=== PATIENT | female | born 1990 | race Two or more races ===

== ENCOUNTER → 2019-09-27 | Outpatient (CLI) | payer MEDICAID ==
--- NOTE | 2019-09-27 14:39 | RADIOLOGY REPORT (SQ) ---
EXAM DESCRIPTION: U/S OB 14+ TRNABD 1GES W/O DOP COMPLETED DATE/TIME: 09/27/2019 1:55 pm REASON FOR STUDY: Z34.82 ENCOUNTER FOR SUPRVSN OF NORMAL , SECOND TRIMESTER Z34.82 ENCOUNT ER FOR SUPRVSN OF NORMAL , SECOND TRI COMPARISON: None. TECHNIQUE: Static and Dynamic grayscale imaging performed of gravid uterus using transabdominal appr oach. Additional selected color Doppler and spectral images recorded. All stored on PACS. LIMITATIONS: None. FINDINGS: FETUSES SEEN:1 EGA: 16 weeks 0 days Calculated using BPD,FL,HC,AC documented on images. No discrepancy with clinica l dates. MARIAJOSE: 03/13/2020 EFW: 147 grams PERCENTILE: Not applicable. Fetus less than or equal to 20 weeks gestation. LVP: 2.2 x 3.9 cm. PLACENTA: Anterior GRADE: I PRESENTATION: Variable. ANATOMY: HEART RATE: 147 beats per minute. FOUR CHAMBER HEART: Visualized. THREE VESSEL CORD: Not verified. CORD INSERTION: Visualized. KIDNEYS AND BLADDER: Kidneys and bladder are not seen. STOMACH: Visualized. Appears normal. SPINE: Not well seen. BRAIN AND LATERAL VENTRICLES: Not well seen. OTHER: No other significant finding. MATERNAL ADNEXA: Maternal ovaries not visualized. CERVICAL LENGTH: 3 cm Closed. OTHER: There appears to be a 3.3 cm uterine fibroid. IMPRESSION: LIVING INTRAUTERINE . ESTIMATED GESTATIONAL AGE 16 weeks 0 days No visualized anomalies. Some anatomical structures could not be seen. Trimester of : Second trimester - 13 weeks 1 day to 27 weeks 6 days. TECHNICAL DOCUMENTATION: JOB ID: [id number] 2010 [employer]- All Rights Reserved Reading location - IP/workstation name: [email or web address]
== END ==
LOC: RAD 12:54
PROVIDERS: ATTEND Midwife
DX: Z34.82 Encounter for supervision of other normal pregnancy, second trimester (principal)
CPT/HCPCS: 76805

== ENCOUNTER 2020-02-29 10:19 | Outpatient (CLI) | payer MEDICAID ==
[2020-02-29 11:30] LABS: APPEARANCE,URINE CLEAR; BILIRUBIN,URINE NEGATIVE (NEGATIVE); COLOR,URINE YELLOW; GLUCOSE, URINE NEGATIVE (NEGATIVE); KETONES,URINE NEGATIVE (NEGATIVE); LEUKOCYTE ESTERASE,URINE NEGATIVE (NEGATIVE); NITRITE,URINE NEGATIVE (NEGATIVE); PROTEIN,URINE NEGATIVE (NEGATIVE); URINE SPECIFIC GRAVITY 1.027
[2020-02-29 11:50] LABS: URINE CREATININE 143.1 mg/dL (16-327)
[2020-02-29 11:55] LABS: URINE AMPHETAMINES SCREEN NEGATIVE; URINE BARBITURATES SCREEN NEGATIVE; URINE BENZODIAZEPINES SCREEN NEGATIVE; URINE COCAINE SCREEN NEGATIVE; URINE MARIJUANA (THC) SCREEN NEGATIVE; URINE METHADONE SCREEN NEGATIVE; URINE PHENCYCLIDINE SCREEN NEGATIVE
[2020-02-29 11:59] LABS: HEMATOCRIT 39.7 % (36.0-47.0); HEMOGLOBIN 13.6 g/dL (12.0-15.5); MEAN CORPUSCULAR HEMOGLOBIN 30.5 pg (27.0-33.4); MEAN CORPUSCULAR HGB CONC 34.3 g/dL (32.0-36.0); MEAN CORPUSCULAR VOLUME 89 fl (80-97); PLATELET COUNT 204 10^3/uL (150-450); RED BLOOD COUNT 4.46 10^6/uL (3.72-5.28); WHITE BLOOD COUNT 7.3 10^3/uL (4.0-10.5)
[2020-02-29 12:21] LABS: ALBUMIN 3.4 g/dL (3.5-5.0); ALKALINE PHOSPHATASE 194 U/L (38-126); ASPARTATE AMINO TRANSFERASE 19 U/L (14-36); BILIRUBIN,TOTAL 0.4 mg/dL (0.2-1.3); BLOOD UREA NITROGEN 9 mg/dL (7-20); CALCIUM 9.3 mg/dL (8.4-10.2); GLUCOSE 77 mg/dL (75-110); TOTAL PROTEIN 6.5 g/dL (6.3-8.2); URIC ACID 4.5 mg/dL (2.5-6.2)
[2020-02-29 12:26] LABS: ANION GAP 5 (5-19); CARBON DIOXIDE 20 mmol/L (22-30); CHLORIDE 108 mmol/L (98-107)
== END 2020-02-29 12:18 | disposition home or self-care (01) ==
LOC: LC 10:19
PROVIDERS: ATTEND Obstetrics & Gynecology Gynecology
DX: O14.93 Unspecified pre-eclampsia, third trimester (principal); Z3A.37 37 weeks gestation of pregnancy
CPT/HCPCS: 36415; 59025; 80053; 80307; 81005; 82570; 83615; 84156; 84550; 85027

== ENCOUNTER 2020-03-09 11:45 | Outpatient (CLI) | payer MEDICAID ==
--- NOTE | 2020-03-09 12:32 | Non Stress Test Report ---
Non Stress Test Datetime Report Generated by CPN: 03/09/2020 12:31 DEMOGRAPHIC EGA NST: 39.0 EGA NST: 37.5 INDICATION Indication for Study (NST) Other: IUP @ 39.0 wks, GHTS Indication for Study (NST) Other: pih w/u VITAL SIGNS Temperature - NST: 98.4 Temperature - NST: 98.2 Pulse - NST: 79 Pulse - NST: 78 RESP - NST: 15 RESP - NST: 18 NBPSYS NST: 128 NBPSYS NST: 116 NBPDIA NST: 78 NBPDIA NST: 87 MONITORING Monitor Explained: Monitor Explained; Test Explained; Patient Verbalized Understanding Monitor Explained: Monitor Explained; Test Explained; Patient Verbalized Understanding Time on Monitor: 03/09/2020 11:58 Time on Monitor: 02/29/2020 11:04 Time off Monitor: 03/09/2020 12:21 Time off Monitor: 02/29/2020 12:08 NST Duration: 23 NST Duration: 64 NST INTERVENTIONS NST Interventions: PO Hydration; Reposition Patient NST Interventions: PO Hydration Physician Notified NST: Candelario Sotelo CNM Physician Notified NST: dr ayers BABY A: [id number] BABY A Movement : Present Movement : Present Contraction Frequency : Irregular Contraction Frequency : irregular FHR Baseline : 130 Accelerations : 15X15 Accelerations : 15X15 Decelerations : None Decelerations : None Variability : Moderate 6-25bpm Variability : Moderate 6-25bpm NST Review: Meets Criteria for Reactive NST NST Review: Meets Criteria for Reactive NST NST Review and Verified By : HANDY Turner NST Results: Reactive NST Results: Reactive NST REPORT Report Trigger: Send Report
== END 2020-03-09 12:34 | disposition home or self-care (01) ==
LOC: LC 11:45
PROVIDERS: ATTEND Obstetrics & Gynecology Gynecology
DX: O13.3 Gestational [pregnancy-induced] hypertension without significant proteinuria, third trimester (principal); Z3A.39 39 weeks gestation of pregnancy
CPT/HCPCS: 59025

== ENCOUNTER 2020-03-09 22:12 | Inpatient (IN) | payer MEDICAID ==
[2020-03-09] MEDS ORDERED: RINGERS SOLUTION,LACTATED 1,000 ML IV PRN (22:46)
[2020-03-09] MEDS ORDERED: RINGERS SOLUTION,LACTATED 1,000 ML IV ONE (22:46)
[2020-03-09] MEDS ORDERED: OXYTOCIN 10 UNIT/ML VIAL ONE (22:46)
[2020-03-09] MEDS ORDERED: MISOPROSTOL 0.2 MG TABLET ONE (22:47)
[2020-03-09] MEDS ORDERED: OXYTOCIN/0.9 % SODIUM CHLORIDE 30 UNIT/500 ML RTUINJ ONE (22:47)
[2020-03-09] MEDS ORDERED: LIDOCAINE 1% INJ-PF (10 MG/ML) 30 ML SDV ONE (22:47)
[2020-03-09 22:57] LABS: APPEARANCE,URINE CLEAR; BILIRUBIN,URINE NEGATIVE (NEGATIVE); COLOR,URINE STRAW; GLUCOSE, URINE NEGATIVE (NEGATIVE); KETONES,URINE NEGATIVE (NEGATIVE); LEUKOCYTE ESTERASE,URINE NEGATIVE (NEGATIVE); NITRITE,URINE NEGATIVE (NEGATIVE); PROTEIN,URINE NEGATIVE (NEGATIVE); URINE SPECIFIC GRAVITY 1.006; UROBILINOGEN,URINE NEGATIVE mg/dL (<2.0)
[2020-03-09 23:12] LABS: URINE AMPHETAMINES SCREEN NEGATIVE; URINE BARBITURATES SCREEN NEGATIVE; URINE BENZODIAZEPINES SCREEN NEGATIVE; URINE COCAINE SCREEN NEGATIVE; URINE MARIJUANA (THC) SCREEN NEGATIVE; URINE METHADONE SCREEN NEGATIVE; URINE PHENCYCLIDINE SCREEN NEGATIVE
[2020-03-09 23:21] LABS: ABSOLUTE EOSINOPHILS # (AUTO) 0.1 10^3/uL (0.0-0.6); ABSOLUTE LYMPHOCYTES (AUTO) 3.5 10^3/uL (0.5-4.7); ABSOLUTE MONOCYTES (AUTO) 0.9 10^3/uL (0.1-1.4); ABSOLUTE NEUT (AUTO) 6.1 10^3/uL (1.7-8.2); BASOPHILS % (AUTO) 0.3 % (0-2); EOSINOPHILS % (AUTO) 0.9 % (0-6); HEMATOCRIT 39.6 % (36.0-47.0); HEMOGLOBIN 13.7 g/dL (12.0-15.5); MEAN CORPUSCULAR HGB CONC 34.6 g/dL (32.0-36.0); MEAN CORPUSCULAR VOLUME 90 fl (80-97); MONOCYTES % (AUTO) 8.7 % (3-13); PLATELET COUNT 198 10^3/uL (150-450); RED BLOOD COUNT 4.42 10^6/uL (3.72-5.28); RED CELL DISTRIBUTION WIDTH 14.7 % (11.5-14.0); SEGMENTED NEUTROPHILS % (AUTO) 57.1 % (42-78); TOTAL CELLS COUNTED % (AUTO) 100 %; WHITE BLOOD COUNT 10.6 10^3/uL (4.0-10.5)
--- NOTE | 2020-03-09 23:52 | Admission Physical ---
Datetime Report Generated by CPN: 03/09/2020 23:52 CURRENT ADMISSION Chief Complaint: Uterine Contractions Indication for Induction: Not Applicable Admit Impression : Term, Intrauterine Admit Plan: Admit to Unit; Initiate Labor Protocol ALLERGIES Medication Allergies: No Medication Allergies: No Known Allergies (09/23/2019) Latex: Latex Allergies Food Allergies: none Environmental Allergies: none OBSTETRICAL HISTORY EDC: 03/16/2020 00:00 : 5 Para: 2 Term: 2 : 0 SAB: 2 IAB: 0 Ectopic: 0 Livin Cesareans: 0 VBACs: 0 Multiple Births: 0 Gestational Diabetes: No Rh Sensitization: No Incompetent Cervix: No TRACEE: No Infertility: No ART Treatment: No Uterine Anomaly: No IUGR: No Hx Previous C/S: No Macrosomia: No Hx Loss/Stillborn: No PIH: Yes Hx : No Placenta Previa/Abruption: No Depression/PP Depression: No PTL/PROM: No Post Hemorrhage: No Current Procedures: Ultrasound; NST Obstetrical History Comments: G1 2006 NVSD born in [place] G2 2011 born in [place] G3 2018 SAB G4 2019 SAB G5 Currenet pregancy SEE RECORDS Alcohol: No Marijuana : No Cocaine: No Other Illicit Drugs: No Cigarettes: Never Smoker. 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 Surgery: No Heart Disease: No Hosp/Surgery: Yes Autoimmune Disorder: No Anesthetic Complications: No Kidney Disease: No Abnormal Pap Smear: No Neuro/Epilepsy: No Psychiatric Disorders: No Other Medical Diseases: No Hepatitis/Liver Disease: No Significant Family History: No Varicosities/Phlebitis: No Trauma/Violence : No Thyroid Dysfunction: No Medical History Comments: Hospitalization with previous pregnancies in [facility] INFECTIOUS HISTORY Gonorrhea: No Genital Herpes: No Chlamydia: No Tuberculosis: No Syphilis: No Hepatitis: No HIV/AIDS Exposure: No Rash or Viral Illness: No HPV: No PHYSICAL EXAM General: Normal HEENT: Normal Neurologic: Normal Thyroid: Normal Heart: Normal Lungs: Normal Breast: Deferred Back: Normal Abdomen: Normal Genitourinary Exam: Normal Extremities: Normal DTRs: Normal Pelvic Type: Adequate FETUS A EGA: 39.0 PLANS FOR LABOR AND DELIVERY Labor and Delivery: None Pain Management: Epidural Feeding Preference: Both Benefit of Breast Feed Discussed: Yes Circumcision: N/A INFORMED CONSENT Signature: with User ID: [email or web address]
[2020-03-09] MEDS ORDERED: NA PHOS,M-B/NA PHOS,DI-BA (ADULT) 133 ML ENEMA PR PRN (23:54)
[2020-03-09] MEDS ORDERED: DIPH/PERTUSS(ACELL)/TETANUS VAC/PF 0.5 ML SYR (>=10YO) IM PRN (23:54)
[2020-03-09] MEDS ORDERED: PROMETHAZINE HCL 25 MG SUPP.RECT PR PRN (23:54)
[2020-03-09] MEDS ORDERED: PSEUDOEPHEDRINE HCL 30 MG TABLET PO PRN (23:54)
[2020-03-09] MEDS ORDERED: BENZOCAINE/MENTHOL AEROSOL SPRAY 56 ML TOP PRN (23:54)
[2020-03-09] MEDS ORDERED: MEASLES,MUMPS&RUBELLA VACC/PF 0.5 ML VIAL SUBCUT PRN (23:54)
[2020-03-09] MEDS ORDERED: DIBUCAINE 1% OINTMENT 28 GM TP PRN (23:54)
[2020-03-09] MEDS ORDERED: PROMETHAZINE HCL 25 MG TABLET PO PRN (23:54)
[2020-03-09] MEDS ORDERED: OXYTOCIN/0.9 % SODIUM CHLORIDE 30 UNIT/500 ML RTUINJ IV PRN (23:54)
[2020-03-09] MEDS ORDERED: ACETAMINOPHEN 650 MG SUPP.RECT PR PRN (23:54)
[2020-03-09] MEDS ORDERED: ACETAMINOPHEN WITH CODEINE #3 TABLET PO PRN (23:54)
[2020-03-09] MEDS ORDERED: PROMETHAZINE HCL INJ 25 MG/1 ML VIAL IV PRN (23:54)
[2020-03-09] MEDS ORDERED: MAGNESIUM HYDROXIDE SUSP 30 ML UDCUP PO PRN (23:54)
[2020-03-09] MEDS ORDERED: DIPHENHYDRAMINE HCL 25 MG CAPSULE PO PRN (23:54)
[2020-03-09] MEDS ORDERED: GLYCERIN/WITCH HAZEL LEAF 1 EACH MED..WIPE TP PRN (23:54)
[2020-03-09] MEDS ORDERED: ZOLPIDEM TARTRATE 5 MG TABLET PO PRN (23:54)
--- NOTE | 2020-03-10 00:21 | Delivery Summary ---
Del Sum A-C Datetime Report Generated by CPN: 03/10/2020 00:21 DELIVERY PERSONNEL DELIVERY PERSONNEL: [id number] Delivery Doctor:: Kiko Vee MD Labor and Delivery Nurse:: Chery Munoz RNmanagement consulting Nurse:: Gayle Jacobo RN Retail Warehouse Associate:: SUNDAY [employer] Nursery Nurse:: Hanna Dominguez RN Electronics Assembler/TRANSPORTATION TECHNICIAN: Deuce Gray, TELEVISION NEWSCAST DIRECTOR MATERNAL INFORMATION Delivery Anesthesia: None Medications After Delivery: Pitocin 30 Units in 500ml NS/D5W Estimated Blood Loss (ml): 200 Delivery QBL: 200 Maternal Complications: None LABOR SUMMARY EDC: 03/16/2020 00:00 No. Babies in Womb: 1 Attempted: No Labor Anesthesia: None LABOR INFORMATION Reason for Induction: Not Applicable Onset of Labor: 03/09/2020 16:00 Complete Dilatation: 03/09/2020 23:37 Oxytocin: N/A Group B Beta Strep: Negative Antibiotics # of Doses: 0 Antibiotics Time of Last Dose: 0 Name of Antibiotic Given: 0 Steroids Given: None Reason Steroids Not Administered: Not Applicable MEMBRANES Membranes Rupture Method: Spontaneous Rupture of Membranes: 03/09/2020 22:41 Length of Rupture (hr): 1.08 Amniotic Fluid Color: Clear Amniotic Fluid Amount: Small Amniotic Fluid Odor: Normal STAGES OF LABOR Stage 1 hr: 7 Stage 1 min: 37 Stage 2 hr: 0 Stage 2 min: 9 Stage 3 hr: 0 Stage 3 min: 4 Total Time in Labor hr: 7 Total Time in Labor min: 50 VAGINAL DELIVERY Episiotomy: None Laceration #1: None Laceration Extension #1: N/A Laceration Repair: No Sponge Count Correct: N/A Sharps Count Correct: N/A CSECTION DELIVERY Primary Indication: N/A Secondary Indication: N/A CSection Incidence: N/A Labor: N/A Elective: N/A CSection Incision: N/A BABY A INFORMATION Delivery Date/Time: 03/09/2020 23:46 Method of Delivery: Vaginal Nurse Controlled Delivery: No Born in Route : No : N/A Forceps: N/A Vacuum Extraction: N/A Shoulder Dystocia : No PRESENTATION/POSITION BABY A Presentation: Cephalic Cephalic Presentation: Vertex Vertex Position: Left Occipital Anterior Breech Presentation: N/A PLACENTA INFORMATION BABY A Placenta Delivery Time : 03/09/2020 23:50 Placenta Method of Delivery: Spontaneous Placenta Status: Delivered SCORES BABY A Heart Rate 1 min: >100 bpm Resp Effort 1 min: Good Cry Reflex Irritability 1 min: Cough or Sneeze or Pulls Away Muscle Tone 1 min: Active Motion Color 1 min: Body [place], Extremities Blue Resuscitation Effort 1 min: Tactile Stimulation SCORE 1 MIN: 9 Heart Rate 5 min: >100 bpm Resp Effort 5 min: Good Cry Reflex Irritability 5 min: Cough or Sneeze or Pulls Away Muscle Tone 5 min: Active Motion Color 5 min: Body [place], Extremities Blue SCORE 5 MIN: 9 INFORMATION BABY A Gestational Age at Delivery: 39.0 Gestational Status: Full Term- 39- 40.6 Weeks Outcome : Liveborn Condition : Stable Sex: Female IDENTIFICATION BABY A Infant Verification Date/Time: 03/09/2020 23:55 ID Band Number: [id number] Mother's Name Verified: Yes Infant RN Verifying Infant: Casper Dominguez RN / AOttoniel Munoz RN WEIGHT/LENGTH BABY A Infant Birthweight (gm): 3380 Infant Weight (lb): 7 Infant Weight (oz): 7 Length (in): 19.75 Length (cm): 50.17 CORD INFORMATION BABY A No. Cord Vessels: 3 Nuchal Cord : N/A Cord Blood Taken: Yes-For Eval (Mom's Blood Type - or O+) Infant Suction: None ASSESSMENT BABY A Infant Complications: None Physical Findings at Delivery: Within Normal Limits Infant Respirations: Appears Normal Skin to Skin: Yes Skin to Skin Time (min): 60 Polo Coach/ALS Called : No Care By: Krystian Dominguez RN Transferred To: Remains with Mother SIGNATURES Signature: with User ID: [email or web address]
[2020-03-10] MEDS: FAMOTIDINE 20 MG TABLET PO SCH ×3 (03:18→22:38)
[2020-03-10] MEDS: IBUPROFEN 800 MG TABLET PO SCH ×3 (05:36→22:38)
[2020-03-10 08:14] LABS: HEMATOCRIT 37.7 % (36.0-47.0); HEMOGLOBIN 13.1 g/dL (12.0-15.5); MEAN CORPUSCULAR HGB CONC 34.8 g/dL (32.0-36.0); MEAN CORPUSCULAR VOLUME 89 fl (80-97); PLATELET COUNT 184 10^3/uL (150-450); RED BLOOD COUNT 4.24 10^6/uL (3.72-5.28); RED CELL DISTRIBUTION WIDTH 14.7 % (11.5-14.0); WHITE BLOOD COUNT 12.6 10^3/uL (4.0-10.5)
[2020-03-10] MEDS: SENNOSIDES/DOCUSATE 8.6-50 MG 1 EACH TABLET PO SCH (10:39)
[2020-03-10] MEDS: FERROUS SULFATE 325 MG TABLET PO SCH ×2 (10:39→17:13)
[2020-03-10] MEDS: DOCUSATE SODIUM 100 MG CAPSULE PO SCH ×2 (10:39→17:13)
[2020-03-10] MEDS: PRENATAL VITAMIN W DHA CAPSULE PO SCH (10:40)
--- NOTE | 2020-03-10 11:10 | PDOC PROGRESS REPORT ---
Subjective-OB Progress Note for:: 03/10/20 - PP Day#1, doing well, no compliants, O+, Rubella immne, breast and bottle feeding Physical Exam (OB) Vital Signs: Temp Pulse Resp BP Pulse Ox 98.9 F 84 16 130/87 H 99 03/10/20 08:00 03/10/20 08:00 03/10/20 08:00 03/10/20 08:00 03/10/20 08:00 Intake & Output 03/09/20 03/10/20 03/11/20 06:59 06:59 06:59 Weight 68 kg - General General Appearance: Appears well, Alert In distress: None - PIH/Pre-Eclampsia DTR's: 2 + Clonus: Negative Headache: Absent Epigastric Pain: No Visual Changes: No - Lochia Lochia Amount: Small 10-25 ml Lochia Color: Rubra/Red - Abdomen Description: Soft Hernia Present: No Fundal Description: Firm, Midline Fundal Height: u/u - u/2 - Respiratory Respiratory Status: No respiratory distress - Abdominal Distension: No distension Tenderness: Nontender - Genitourinary Genitourinary Note: voiding - Extremities Upper extremity: Normal inspection Lower extremities: Normal inspection - Neurological Cognition: Normal Orientation: AAOx4 - Psychological Associated symptoms: Normal affect, Normal mood - Skin Skin Temperature: Warm Skin Moisture: Dry Objective-Diagnostic Laboratory: 03/10/20 07:30 03/09/20 03/09/20 03/09/20 22:28 23:05 23:05 WBC 10.6 H RBC 4.42 Hgb 13.7 Hct 39.6 MCV 90 MCH 31.0 MCHC 34.6 RDW 14.7 H Plt Count 198 Seg Neutrophils % 57.1 Urine Color STRAW Urine Appearance CLEAR Urine pH 7.0 Ur Specific [place] 1.006 Urine Protein NEGATIVE Urine Glucose (UA) NEGATIVE Urine Ketones NEGATIVE Urine Blood NEGATIVE Urine Nitrite NEGATIVE Ur Leukocyte Esterase NEGATIVE Blood Type O POSITIVE Antibody Screen NEGATIVE 03/10/20 07:30 WBC 12.6 H RBC 4.24 Hgb 13.1 Hct 37.7 MCV 89 MCH 31.0 MCHC 34.8 RDW 14.7 H Plt Count 184 Seg Neutrophils % Urine Color Urine Appearance Urine pH Ur Specific [place] Urine Protein Urine Glucose (UA) Urine Ketones Urine Blood Urine Nitrite Ur Leukocyte Esterase Blood Type Antibody Screen Assessment and Plan(PN) Plan:: routine PP orders, ambulation encouraged - Time Spent with Patient Time with patient: Less than 15 minutes Medications reviewed and adjusted accordingly: Yes - Disposition Anticipated Discharge Disposition: Home, Self Care Anticipated Discharge Timeframe: within 24 hours
[2020-03-11] MEDS: IBUPROFEN 800 MG TABLET PO SCH ×2 (06:20→14:34)
[2020-03-11] MEDS: SENNOSIDES/DOCUSATE 8.6-50 MG 1 EACH TABLET PO SCH (10:13)
[2020-03-11] MEDS: PRENATAL VITAMIN W DHA CAPSULE PO SCH (10:13)
[2020-03-11] MEDS: FAMOTIDINE 20 MG TABLET PO SCH (10:13)
[2020-03-11] MEDS: FERROUS SULFATE 325 MG TABLET PO SCH (10:13)
[2020-03-11] MEDS: DOCUSATE SODIUM 100 MG CAPSULE PO SCH (10:13)
--- NOTE | 2020-03-11 10:53 | PDOC DISCHARGE SUMMARY ---
Impression - Admit/DC Date/PCP Admission Date/Primary Care Provider: 03/09/20 22:49 LILIANA POOL MD Discharge Date: 03/11/20 - PP Day #2, doing well, no complaints, , O+, Rubella immune - Discharge Diagnosis (1) (normal spontaneous vaginal delivery) Is this a current diagnosis for this admission?: Yes (2) [place]an speaking patient Is this a current diagnosis for this admission?: Yes (3) Normal course Is this a current diagnosis for this admission?: Yes - Additional Information Resuscitation Status: Full Code Discharge Diet: As Tolerated, Regular Discharge Activity: Activity As Tolerated, No Lifting Over 10 Pounds, Pelvic Rest Referrals: LILIANA POOL MD [Primary Care Provider] - Prescriptions: Ibuprofen [Motrin 800 mg Tablet] 800 mg PO Q8 #60 tablet Home Medications: Iron,Carb/Vit C/Vit B12/Folic [Iron 100 Plus Tablet] 1 each PO DAILY 03/09/20 Vits96/Iron Fum/Folic [ Tablet] 1 each PO DAILY 03/09/20 Ibuprofen [Motrin 800 mg Tablet] 800 mg PO Q8 #60 tablet 03/11/20 HPI Reason(s) for Admission: Onset of Labor Procedures: Ultrasound Intrapartum Procedure(s): Spontaneous Vaginal Delivery Hospital Course Hospital Course: routine Results Laboratory Results: WBC 12.6 10^3/uL (4.0-10.5) H 03/10/20 07:30 RBC 4.24 10^6/uL (3.72-5.28) 03/10/20 07:30 Hgb 13.1 g/dL (12.0-15.5) 03/10/20 07:30 Hct 37.7 % (36.0-47.0) 03/10/20 07:30 MCV 89 fl (80-97) 03/10/20 07:30 MCH 31.0 pg (27.0-33.4) 03/10/20 07:30 MCHC 34.8 g/dL (32.0-36.0) 03/10/20 07:30 RDW 14.7 % (11.5-14.0) H 03/10/20 07:30 Plt Count 184 10^3/uL (150-450) 03/10/20 07:30 Lymph % (Auto) 33.0 % (13-45) 03/09/20 23:05 [place] % (Auto) 8.7 % (3-13) 03/09/20 23:05 Eos % (Auto) 0.9 % (0-6) 03/09/20 23:05 Baso % (Auto) 0.3 % (0-2) 03/09/20 23:05 Absolute Neuts (auto) 6.1 10^3/uL (1.7-8.2) 03/09/20 23:05 Absolute Lymphs (auto) 3.5 10^3/uL (0.5-4.7) 03/09/20 23:05 Absolute Monos (auto) 0.9 10^3/uL (0.1-1.4) 03/09/20 23:05 Absolute Eos (auto) 0.1 10^3/uL (0.0-0.6) 03/09/20 23:05 Absolute Basos (auto) 0.0 10^3/uL (0.0-0.2) 03/09/20 23:05 Seg Neutrophils % 57.1 % (42-78) 03/09/20 23:05 Urine Color STRAW 03/09/20 22:28 Urine Appearance CLEAR 03/09/20 22:28 Urine pH 7.0 (5.0-9.0) 03/09/20 22:28 Ur Specific [place] 1.006 03/09/20 22:28 Urine Protein NEGATIVE mg/dL (NEGATIVE) 03/09/20 22:28 Urine Glucose (UA) NEGATIVE mg/dL (NEGATIVE) 03/09/20 22:28 Urine Ketones NEGATIVE mg/dL (NEGATIVE) 03/09/20 22:28 Urine Blood NEGATIVE (NEGATIVE) 03/09/20 22:28 Urine Nitrite NEGATIVE (NEGATIVE) 03/09/20 22:28 Urine Bilirubin NEGATIVE (NEGATIVE) 03/09/20 22:28 Urine Urobilinogen NEGATIVE mg/dL (<2.0) 03/09/20 22:28 Ur Leukocyte Esterase NEGATIVE (NEGATIVE) 03/09/20 22:28 Urine Ascorbic Acid NEGATIVE (NEGATIVE) 03/09/20 22:28 Urine Opiates Screen NEGATIVE 03/09/20 22:28 Urine Methadone Screen NEGATIVE 03/09/20 22:28 Ur Barbiturates Screen NEGATIVE 03/09/20 22:28 Ur Phencyclidine Scrn NEGATIVE 03/09/20 22:28 Ur Amphetamines Screen NEGATIVE 03/09/20 22:28 U Benzodiazepines Scrn NEGATIVE 03/09/20 22:28 Urine Cocaine Screen NEGATIVE 03/09/20 22:28 U Marijuana (THC) Screen NEGATIVE 03/09/20 22:28 RPR NONREACTIVE (NONREACTIVE) 03/09/20 23:05 Blood Type O POSITIVE 03/09/20 23:05 Antibody Screen NEGATIVE 03/09/20 23:05 Plan Plan of Treatment: d/c home, f/up with [facility] in 4 week for PP check Time Spent: Less than 30 Minutes
[2020-03-11 11:15] VITALS: BP 130/87
== END 2020-03-11 16:15 | disposition home or self-care (01) | DRG 788 ==
LOC: LC 22:12 → LR 22:49 → 2S 03-10 01:56
PROVIDERS: ADMIT Obstetrics & Gynecology Gynecology; ATTEND Obstetrics & Gynecology Gynecology
PROC: 10D00Z1 Extraction of Products of Conception, Low, Open Approach (ICD-10-PCS; principal; 2020-03-09)
DX: O13.4 Gestational [pregnancy-induced] hypertension without significant proteinuria, complicating childbirth (principal); Z91.040 Latex allergy status; Z37.0 Single live birth; Z3A.39 39 weeks gestation of pregnancy
CPT/HCPCS: 36415; 80307; 81005; 85025; 85027; 86592; 86850; 86900; 86901; J2590; J3490